=== PATIENT | female | born 1980 | race American Indian/Alaskan Native ===

== ENCOUNTER 2022-03-01 13:01 | Emergency (ER) | payer BC ==
[2022-03-01] MEDS ORDERED: HYDROcodone/ACETAMINOPHEN 5-325 MG TAB PO STA (21:52)
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
[2022-03-02 00:15] VITALS: BP 137/85
== END 2022-03-01 23:30 | disposition home or self-care (01) ==
LOC: ED 13:01
DX: M79.18 Myalgia, other site (principal); V89.2XXA Person injured in unspecified motor-vehicle accident, traffic, initial encounter; Y93.89 Activity, other specified; Y92.89 Other specified places as the place of occurrence of the external cause; Y99.8 Other external cause status
CPT/HCPCS: 99282